=== PATIENT | male | born 1995 | race Caucasian/White ===

== ENCOUNTER 2021-04-30 07:25 | Emergency (ER) | payer OTHER ==
[~2021-04-30] VITALS: Ht 180.3 cm; Wt 86.2 kg
[2021-04-30 07:31] VITALS: BP 142/83
[2021-04-30] MEDS ORDERED: DEXAMETHASONE 10 MG/ML VIAL PO ONE (07:50)
--- NOTE | 2021-04-30 07:52 | NUR ---
25 y/o male, c/o sob, ear pain and throat pain for 2 days. 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 denies anyone sick in household. denies nausea, vomiting, diarrhea. skin is pink/warm/dry. a&o x4 with even and steady gait. lungs clear bl, heart rate even and tachy. pt denies dysuria, hematuria, urinary frequency or retention. pt denies any fever, cp, or cough at this time. pt states pain is 10/10 at this time. ermd made aware of pt. pmh: denies nka med: nyquil
[2021-04-30 08:06] VITALS: BP 142/83
--- NOTE | 2021-04-30 08:06 | NUR ---
Patient discharged with v/s stable. Written and verbal after care instructions given and explained. Patient verbalized understanding. Ambulatory with steady gait. All questions addressed prior to discharge. Advised to follow up with PMD.
--- NOTE | 2021-04-30 08:06 | NUR ---
pt swabbed for covid novel, sent to lab at this time
== END 2021-04-30 08:06 | disposition home or self-care (01) ==
LOC: MED 07:25
DX: J02.9 Acute pharyngitis, unspecified (principal); Z20.822 Contact with and (suspected) exposure to COVID-19
CPT/HCPCS: 99283; J1100; U0003

== ENCOUNTER 2021-05-11 20:20 | Emergency (ER) | payer OTHER ==
[~2021-05-11] VITALS: Ht 180.3 cm; Wt 86.2 kg
[2021-05-11 20:51] VITALS: BP 134/78
--- NOTE | 2021-05-11 20:58 | NUR ---
TO LOBBY FOLLOWING TRIAGE
--- NOTE | 2021-05-11 22:59 | NUR ---
CALLED PT TO ROOM, NO ANSWER LWBS
== END 2021-05-11 22:59 | disposition left against medical advice (07) ==
LOC: MED 20:20
DX: M79.645 Pain in left finger(s) (principal); Z53.21 Procedure and treatment not carried out due to patient leaving prior to being seen by health care provider

== ENCOUNTER 2021-05-16 02:33 | Emergency (ER) | payer OTHER ==
[~2021-05-16] VITALS: Ht 180.3 cm; Wt 86.2 kg
[2021-05-16 02:38] VITALS: BP 150/90
--- NOTE | 2021-05-16 02:38 | NUR ---
TO BED AMBULATORY
--- NOTE | 2021-05-16 02:45 | NUR ---
25 Y/O MALE BIB SELF FOR SWELLING AND PAIN X1 WEEK. PT STATES HE WAS WORKING WITH [employer] WHEN HIS THUMB STARTED TO HURT. PT LEFT THUMB IS SWOLLEN BLACK AND PURPLE. PT TOOK ADVIL 200 MG FOR PAIN WITH NO RELIEF. PT HAS ALSO BEEN TAKING LEFTOVER ANTIBIOTICS FROM MOTHER. UNABLE TO RECALL NAMES OF ANTIBIOTIC. PT IS A&O X4. DENIES N/F/V/D/ COUGH/SOB. PT IS AMBULATORY AND DESIRES TO GO BACK TO WORK TODAY. PMH: NONE RX:NONE.
[2021-05-16] MEDS ORDERED: LIDOCAINE MPF 1% 10 MG/ML VIAL INJ ONE (02:50)
--- NOTE | 2021-05-16 03:02 | NUR ---
XYLOCAINE GIVEN BY ERMD
[2021-05-16] MEDS ORDERED: KETOROLAC 60 MG/2 ML VIAL IM ONE (03:05)
[2021-05-16] MEDS ORDERED: ACET-8386 PO (03:07)
[2021-05-16] MEDS ORDERED: IBUP-2213 PO (03:07)
[2021-05-16] MEDS ORDERED: CEPH-588 PO (03:07)
[2021-05-16 03:30] VITALS: BP 150/90
--- NOTE | 2021-05-16 03:30 | NUR ---
Patient discharged with v/s stable. Written and verbal after care instructions given and explained. Patient alert, oriented and verbalized understanding of instructions. Ambulatory with steady gait. All questions addressed prior to discharge. ID band removed. Patient advised to follow up with PMD. Rx of NORCO, IBUPROFEN, KEFLEX given. Opportunity to ask questions provided and answered.
--- NOTE | 2021-05-16 03:38 | NUR ---
The patient's care was reviewed and supervised by Hamida Cruz RN.
== END 2021-05-16 03:30 | disposition home or self-care (01) ==
LOC: MED 02:33
DX: L03.012 Cellulitis of left finger (principal); Z79.899 Other long term (current) drug therapy
CPT/HCPCS: 11730; 96372; 99284; J1885; J2001